=== PATIENT | male | born 1980 | race Caucasian/White ===

== ENCOUNTER 2019-04-02 00:58 | Emergency (ER) | payer BC, OTHER ==
--- NOTE | 2019-04-02 01:02 | EDM.PDOC ---
ED HPI GENERAL MEDICAL PROBLEM - General Stated Complaint: injury to finger Time Seen by Provider: 04/02/19 01:01 Source of Information: Reports: Patient History Limitations: Reports: No Limitations - History of Present Illness INITIAL COMMENTS - FREE TEXT/NARRATIVE: 39-year-old male who works at [employer] and was pushing a cart with a 600-1000 pound metal cylinder and he hit a bump in the concrete and the metal cylinder fell back onto his right fourth finger crushing it between the metal cylinder and the metal on the cart. He scraped the top of his left middle finger removing the right fourth finger from the entrapment from the metal cylinder and the cart. This occurred approximately 12:30 AM. He presents directly to the emergency department from his work. There is a 5/10 level of pain in his right fourth finger tip. It is a sharp and pressure type pain. The pain radiates up his finger. The pain is worse with movement and with palpation. He has really no pain in the left middle finger. There are no other associated signs or symptoms. There are no other modifying factors. 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 Social & Family History - Tobacco Use Smoking Status *Q: Former Smoker (Nonsmoker for the past 11 years.) Tobacco Use Within Last Twelve Months: Smokeless Tobacco (He chews tobacco) - Alcohol Use Alcohol Use History: Yes Alcohol Use Frequency: Weekly - Living Situation & Occupation Occupation: Employed (He works at [employer].) Review of Systems - Review of Systems Review Of Systems: See Below Constitutional: Reports: No Symptoms (The patient reports that his last tetanus immunization was less than 5 years ago, so he is up-to-date.) Eyes: Reports: No Symptoms Ears: Reports: No Symptoms Nose: Reports: No Symptoms Mouth/Throat: Reports: No Symptoms Respiratory: Reports: No Symptoms Cardiovascular: Reports: No Symptoms GI/Abdominal: Reports: No Symptoms Genitourinary: Reports: No Symptoms Musculoskeletal: Reports: Other (Right hand dominant. Pain over tip of right fourth finger.) Skin: Reports: Wound (Abrasion over the dorsal aspect of the left middle finger) Neurological: Reports: No Symptoms ED EXAM, GENERAL - Physical Exam Exam: See Below Exam Limited By: No Limitations General Appearance: Alert, WD/WN, Moderate Distress (Pain) Eye Exam: Bilateral Eye: EOMI, Normal Inspection Ears: Normal External Exam, Hearing Grossly Normal Ear Exam: Bilateral Ear: Auricle Normal Nose: Normal Inspection, Normal Mucosa, No Blood Throat/Mouth: Normal Inspection, Normal Oropharynx, Normal Voice, No Airway Compromise Head: Atraumatic, Normocephalic Neck: Normal Inspection, Supple, Non-Tender, Full Range of Motion Respiratory/Chest: No Respiratory Distress, Lungs Clear, Normal Breath Sounds, No Accessory Muscle Use, Chest Non-Tender Cardiovascular: Normal Peripheral Pulses, Regular Rate, Rhythm, No JVD Peripheral Pulses: 2+: Radial (L), Radial (R) GI/Abdominal: Normal Bowel Sounds, Soft, Non-Tender, No Mass Back Exam: Normal Inspection Extremities: Normal Capillary Refill, Other (Subungual hematoma of the right fourth finger that is less than 1/5 of the nail coverage. There is some flattening of the fingertip but there is capillary refill present. It is tender to palpation.) Neurological: Alert, Oriented, CN II-XII Intact, Normal Cognition, No Motor/ Sensory Deficits Skin Exam: Warm, Dry, Normal Color, No Rash, Wound/Incision (Abrasion over the dorsal aspect of the distal left middle finger. Abrasion along the nail of right fourth finger.) Course - Vital Signs Last Recorded V/S: Last Vital Signs Temp 36.8 C 04/02/19 01:02 Pulse 80 04/02/19 01:02 Resp 14 04/02/19 01:02 BP 150/74 H 04/02/19 01:02 Pulse Ox 98 04/02/19 01:02 - Orders/Labs/Meds Orders: Active Orders 24 hr Category Date Time Status Fingers Fourth Digit Rt F8 [CR] Stat Exams 04/02/19 01:14 Taken Meds: Medications Discontinued Medications Generic Name Dose Route Start Last Admin Trade Name Abigail PRN Reason Stop Dose Admin Bacitracin 1 dose 04/02/19 02:05 Bacitracin Oint 1 Gm TOP 04/02/19 02:06 ONETIME ONE - Radiology Interpretation Free Text/Narrative:: X-ray right fourth finger shows comminuted tuft fracture area - Re-Assessments/Exams Free Text/Narrative Re-Assessment/Exam: 04/02/19 02:05: The patient has a somewhat comminuted fracture of the tuft of the right fourth finger. We will place a protective finger splint over the tip of the right fourth finger. The left middle finger wound will be cleaned, bacitracin will be applied and a Band-Aid to be applied. Departure - Departure Time of Disposition: 02:10 Disposition: Home, Self-Care 01 Condition: Good Clinical Impression: Crushing injury of finger of right hand, Closed fracture of tuft of distal phalanx of finger, Abrasion of left ring finger, initial encounter Abrasion of left middle finger Qualifiers: Encounter type: initial encounter Qualified Code(s): S60.413A - Abrasion of left middle finger, initial encounter - Discharge Information Instructions: Wound Care, Adult, Crush Injury of the Hand, [id number] Referrals: Donovan Black MD [Primary Care Provider] - Additional Instructions: You have a fracture of the phalanx or the tuft of the fourth finger tip. Use the splint that we provided you for comfort and support. Clean the wound on your left hand with soap and water and apply bacitracin and a Band-Aid until it has healed over. Take Tylenol and ibuprofen as needed for pain. Follow-up with your primary doctor as needed. Back to the emergency department for signs of infection, marked increase in pain or any other concerning sign or symptom. Sepsis Event Note - Focused Exam Vital Signs: Vital Signs Temp Pulse Resp BP Pulse Ox 04/02/19 01:02 36.8 C 80 14 150/74 H 98 Date Exam was Performed: 04/02/19 Time Exam was Performed: 02:16 - My Orders Last 24 Hours: My Active Orders 04/02/19 01:14 Fingers Fourth Digit Rt F8 [CR] Stat - Assessment/Plan Last 24 Hours: My Active Orders 04/02/19 01:14 Fingers Fourth Digit Rt F8 [CR] Stat
[2019-04-02] MEDS ORDERED: Bacitracin Oint 1 GM U/D Packet TOP ONE (02:05)
--- NOTE | 2019-04-02 09:59 | CR ---
INDICATION: Crush injury - work injury. RIGHT FOURTH FINGER: Three views of the right fourth finger were obtained 04/02 - no comparisons. Comminuted fracture of the ungual tuft of the fourth digit is noted with 1 to 1.5 mm separation of the fracture fragments but overall adequate position and alignment. No other bone or joint abnormality was identified. [facility]
== END 2019-04-02 02:49 | disposition home or self-care (01) ==
LOC: FB.ED 00:58
DX: S62.634A Displaced fracture of distal phalanx of right ring finger, initial encounter for closed fracture (principal); S60.413A Abrasion of left middle finger, initial encounter; J45.909 Unspecified asthma, uncomplicated; Z87.891 Personal history of nicotine dependence; W20.8XXA Other cause of strike by thrown, projected or falling object, initial encounter; Y93.89 Activity, other specified; Y92.89 Other specified places as the place of occurrence of the external cause; Y99.0 Civilian activity done for income or pay
CPT/HCPCS: 73140-F8; 99000; 99283-25